=== PATIENT | female | born 2000 | race Caucasian/White ===

== ENCOUNTER 2022-09-05 19:03 | Emergency (ER) | payer MEDICAID ==
[~2022-09-05] VITALS: Ht 157.5 cm; Wt 54.5 kg
[2022-09-05 19:16] VITALS: BP 135/77
[2022-09-05] MEDS ORDERED: METR-159 PO (21:01)
== END 2022-09-05 21:11 | disposition home or self-care (01) ==
LOC: ER 19:04
DX: N76.0 Acute vaginitis (principal); Z88.8 Allergy status to other drugs, medicaments and biological substances
CPT/HCPCS: 87210; 99283; 99284